=== PATIENT | male | born 1940 | race Caucasian/White ===

== ENCOUNTER 2017-01-14 14:01 | Inpatient (IN) | payer MEDICARE, OTHER ==
[~2017-01-14] VITALS: Ht 170.2 cm; Wt 56.7 kg
[2017-01-14 14:06] VITALS: BP 167/85; PULSE 68; RESP 16; O2SAT 97
[2017-01-14] MEDS ORDERED: ATOR20TA PO (14:11)
--- NOTE | 2017-01-14 14:21 | ED.REPORT ---
HPI-Chest Pain 40 and Over Date of Service Jan 14, 2017 ED Provider: Morgan Paul MD 76 year old male with a history of high cholesterol presents to the ER complaining of intermittent shortness of breath and chest pain for the past month. Over the past few weeks he has noticed an exertional component to symptoms, exacerbation with laying flat, and he states that the pain is periodically present upon awakening. Today symptoms worsened with constant left side chest pain that radiates into his left arm, which prompted his ER visit. Nursing Notes Stated Complaint: CHEST PAIN,SHORT OF BREATH-BROUGHT OVER FROM OR Chief Complaint: Chest Pain Nursing Notes Reviewed: Yes Allergies: Coded Allergies: Contrast Media (Verified Allergy, Intermediate, Hives, 01/14/17) Scheduled Atorvastatin (Lipitor) 20 Mg Tablet 20 MG PO DAILY General Time Seen by MD: 14:13 Chief Complaint Chest pain Hx Obtained From: Patient Arrived By: Walk-in Sudden in Onset?: No Onset Occurred: More than a week ago... (1 month) Symptom Duration: Intermittent Location: : Chest left Quality: Painful Radiation: : Arm left Severity: Current: Mild Severity: Maximum: Moderate Recent Healthcare: Recent doctor visit Similar Sx Previous: Yes Past Medical History Past Medical History Reports: Hyperlipidemia (High Cholesterol) Smoking History Unknown if Ever Smoker Ambulatory Status Independent Review of Systems Constitutional: Denies: Chills, Fever Respiratory: Reports: Shortness of breath Cardiovascular: Reports: Chest pain, Dyspnea on exertion, Denies: Palpitations GI: Denies: Nausea, Vomiting Musculoskeletal: Reports: Extremity pain (Left Arm), Denies: Back pain, Neck pain Complete sys rev & neg: except as marked. Physical Exam Initial Vital Signs Vital Signs (First) Date Time Temp Pulse Resp B/P Pulse Ox O2 Delivery O2 Flow Rate FiO2 01/14/17 14:06 35.9 68 16 167/85 97 Room Air Initial VS: Reviewed Head / Eyes: Atraumatic, Normocephalic, PERRL Neck: Supple, Non-tender, Full range of motion Extremities: Vascular intact, Neuro intact, No swelling, No tenderness Skin: Warm, Dry, No cyanosis Neurologic: Alert, Oriented, Nonfocal General/Constitutional: Awake, Alert, Well developed, Well nourished Respiratory / Chest: Breath sounds NL, Breath sounds = bilat, No respiratory distress, No rales, No rhonchi, No wheezing, No stridor, No chest tenderness Cardiovascular: Heart rate NL, Regular rhythm, Heart sounds NL, No murmurs, Peripheral circulation NL, Pulses = bilaterally, No gross BP differential Abdomen: Soft, Non-tender, No guarding, No rebound, No distention Interpretation & Diagnostics Lab Results Interpretation Result Diagram: 01/14/17 1420 01/14/17 1420 Test 01/14/17 14:20 White Blood Count 5.8th/mm3 (3.8-10.1) Red Blood Count 5.10mil/mm3 (4.40-5.80) Hemoglobin 15.6g/dL (13.8-17.2) Hematocrit 46.3% (41.0-50.0) Mean Corpuscular Volume 90.8fL (81-100) Mean Corpuscular Hemoglobin 30.6pg (27.0-35.0) Mean Corpuscular Hemoglobin Concent 33.7% (32.0-37.0) Red Cell Distribution Width 12.6% (12.3-15.4) Platelet Count 246bil/L (150-400) Neutrophils (%) (Auto) 53.7% (40-74) Lymphocytes (%) (Auto) 28.0% (14-46) Monocytes (%) (Auto) 14.1% (4-12) Eosinophils (%) (Auto) 3.3% (0-5) Basophils (%) (Auto) 0.9% (0-3) D-Dimer 0.6mg/L (<0.50) Sodium Level 140mEq/L (134-144) Potassium Level 4.2mEq/L (3.5-5.2) Chloride Level 102mEq/L (97-108) Carbon Dioxide Level 23mmol/L (18-29) Blood Urea Nitrogen 15mg/dL (8-27) Creatinine 0.91mg/dL (0.76-1.27) Estimat Glomerular Filtration Rate 87mL/min (>59) Glucose Level 102mg/dL (60-99) Calcium Level 9.9mg/dL (8.5-10.1) Magnesium Level 2.2mg/dL (1.6-2.6) Total Bilirubin 0.5mg/dL (0.0-1.2) Aspartate Amino Transf (AST/SGOT) 28U/L (0-50) Alanine Aminotransferase (ALT/SGPT) 28U/L (0-44) Alkaline Phosphatase 69U/L (25-160) Troponin T < 0.010ug/L (0.0-0.011) Pro-B-Type Natriuretic Peptide 103.0pg/mL (0-486) Total Protein 7.3g/dL (6.4-8.4) Albumin 4.7g/dL (3.4-5.0) ECG Interpretation ECG Interpretation: Sinus rhythm, rate [address] T changes Time: 15:47 Interpreted by: ED physician X-Ray Chest Interpretation Chest Xray Interpretation: IMPRESSION: No acute cardiopulmonary disease process. Dictated by: Zina Gr MD, PhD on 01/14/2017 at 15:14 Approved by: Zina Gr MD, PhD on 01/14/2017 at 15:14 View: Portable, 1 view Interpretation / Wet Read by: Interpret - Radiologist Re-Eval/Medical Decision Med Decision/Clinical Course 76 -year-old male history of hypercholesterolemia presenting with exertional dyspnea and chest pain for 1-2 months. Also reports chest pain at rest. Troponins are negative. No EKG changes. BNP is normal. D-dimer is mildly elevated. Patient has contrast allergy and cannot perform CT angiogram emergently. Discussed with hospitalist and we will admit for chest pain. Possible unstable angina. Differential hospitalist regarding VQ scan versus pretreating for CT angiogram chest to rule out PE. We discussed holding off on anticoagulation given low d-dimer and low risk PE pending studies. Time of Eval: 16:26 Re-Evaluation/Progress Note: Patient's pain is mild, but persistent. Discussed lab and radiology results and need for admission. Patient is amenable to the plan. All other questions addressed. Consultation : Referral / Consult Name: Truong Lim MD Consulted With: Hospitalist Call Returned at: 16:39 Cook Helper Juice: Agrees with eval, Agrees with plan, Accepts admit Counseled Regarding: Diagnosis, Lab results, Need for admission Discharge & Departure Primary Impression: Chest pain Disposition: ADMITTED TO HOSPITAL Discharge Condition All VS Reviewed: Yes Condition: Stable Referrals: [facility] Scribe Attestation Portions of this note were transcribed by Burak Martínez. I, Dr. Paul, personally performed the history, physical exam and medical decision-making; I reviewed and confirmed the accuracy of the information in the transcribed note. Signed by: Mellissa Anand, 01/14/2017 and 16:45 copies to: [facility] Morgan Paul MD Jan 14, 2017 14:21 BURAK MARTÍNEZ Jan 14, 2017 14:24
[2017-01-14 14:32] LABS: BASOPHILS % (AUTO) 0.9 % (0-3); EOSINOPHILS % (AUTO) 3.3 % (0-5); MONOCYTES % (AUTO) 14.1 % (4-12); Mean Corpuscular Hemoglobin 30.6 pg (27.0-35.0); Mean Corpuscular Volume 90.8 fL (81-100); NEUTROPHILS % (AUTO) 53.7 % (40-74); Platelet Count 246 bil/L (150-400)
[2017-01-14 15:07] LABS: Magnesium 2.2 mg/dL (1.6-2.6)
[2017-01-14 15:08] LABS: TROPONIN T < 0.010 ug/L (0.0-0.011)
--- NOTE | 2017-01-14 15:15 | DRSVH ---
PROCEDURE: X-RAY CHEST ONE VIEW, PORTABLE ([id number]) INDICATIONS: chest pain TECHNIQUE: One view of the chest was acquired. COMPARISON: None. FINDINGS: Surgical changes and devices: None. Lungs and pleura: No pleural effusions or pneumothorax. Lungs are clear. Mediastinum: Mediastinal contours appear normal. Heart size is normal. Bones and chest wall: No suspicious bony lesions. Overlying soft tissues appear unremarkable. IMPRESSION: No acute cardiopulmonary disease process. Dictated by: Zina Gr MD, PhD on 01/14/2017 at 15:14 Approved by: Zina Gr MD, PhD on 01/14/2017 at 15:14
[2017-01-14 17:11] VITALS: BP 156/76; PULSE 69; RESP 18; O2SAT 99
[2017-01-14] MEDS ORDERED: Alum-Mag Hydrox-Simeth 30 mL Suspension PO PRN (19:15)
[2017-01-14] MEDS ORDERED: Ondansetron 2 mg/mL 2 mL Inj IVPUSH PRN (19:15)
[2017-01-14] MEDS ORDERED: Lactated Ringer's 1,000 ML IV SCH (19:15)
[2017-01-14] MEDS ORDERED: Polyethylene Glycol (PEG) 17 Gm Powder PO PRN (19:15)
[2017-01-14 19:25] VITALS: BP 171/99; PULSE 85; RESP 20; O2SAT 97
--- NOTE | 2017-01-14 19:38 | PCM.HPMED ---
Subjective Date of Service Jan 14, 2017 Primary Provider: Admitting Physician: [facility] Care Physician: [facility] Attending Physician: Chief Complaint: Chest pain History of Present Illness: 76 years old with past medical history of hyperlipidemia came to ER complaining about intermittent chest pain for a month or so . Pain is exacerbate when he goes to exercises and do treadmill , and relieve by rest. Pain is retrosternal , radiating to left arm, He has been having some shortness of breath recently . He went today to his PCP who sent him to the ER for further evaluation . ER work up is negative except for very mild elevation in D-dimers . Patient being left to observation to r/o acs . Allergies Coded Allergies: Contrast Media (Verified Allergy, Intermediate, Hives, 01/14/17) Home Medications Atorvastatin. PMH Hypercholesterolemia Surgical History None Family History Reviewed and non contributory to the present illness Social History Hx Alcohol Use: No (Not in 25 years) Smoking Status: Unknown if Ever Smoker Living Arrangement: with Family Exam Vital Signs Vital Sign - Last Date Time Temp Pulse Resp B/P Pulse Ox O2 Delivery O2 Flow Rate FiO2 01/14/17 17:11 69 18 156/76 99 Room Air 01/14/17 14:06 35.9 Exam Gen : NAD . Well nourished . Head / Eyes: Atraumatic, Normocephalic, PERRL Neck: Supple, no JVD Chest : Normal respiratory effort Lung : Clear B/l. No G/M/R Heart : S1S2, RRR, No gallop, no murmur Abdomen : Benign Extremity : NO edema, no cyanosis Neuro : Grossly intact Skin : No rash, no ulcer Lab and Diagnostics Result Diagram: 01/14/17 1420 01/14/17 1420 X-Rays, CTs and MRIs Chest X-ray reviewed : No acute cardiopulmonary disease process Assessment & Plan 1. Chest 2 . SOB. (PE?) 3 .hypercholesterolemia Telemetry monitoring. Troponin x 3 . Aspirin 81 mg PO daily Nitroglycerine for chest pain . Consider stress test in AM . V/Q ordered in ER is pending . Possibility of PE is being entertained . Lovenox therapeutic dose initiated in the interim . Patient is breathing in room air with good saturation . D-Dimers very mildly elevated 0.6. Short hospital stay is expected VTE Prophylaxis: Other (ON lovenox at therapeutic dose ) Resuscitation Status: CPR: Attempt Resuscitation Time spent 25 minutes Harish Pereyra MD Jan 14, 2017 19:38
[2017-01-14 20:56] VITALS: PULSE 67
[2017-01-14] MEDS ORDERED: MULT-140 PO (21:03)
[2017-01-14] MEDS ORDERED: GARL500T4 PO (21:03)
[2017-01-14] MEDS ORDERED: ASPI81TA3 PO (21:03)
[2017-01-14] MEDS ORDERED: FISH1CAP15 PO (21:03)
[2017-01-14 21:19] VITALS: BP 170/98; PULSE 77; RESP 18; O2SAT 97
[2017-01-14] MEDS ORDERED: predniSONE 20 mg Tablet PO ONE (21:25)
[2017-01-14 23:17] VITALS: BP 153/81; PULSE 73
[2017-01-15] VITALS (7 sets, daily range): BP systolic 126–143; BP diastolic 69–84; PULSE 51–81; RESP 18; O2SAT 95–97
--- NOTE | 2017-01-15 | NUR ---
Admit note Pt arrived to [facility] at 1999. Pt stating came to ER due to increased chest pressure and shortness of breath. Pt stating having slight chest pressure, denies chest pain, denies shortness of breath while sitting in bed. Placed pt on tele. Allergy sticker to arm band. Pt's BP elevated 170/98, orders for PO metoprolol received. Call light within reach, frequent rounding.
--- NOTE | 2017-01-15 03:28 | NUR ---
PO prednisone Pt has new orders for PO prednisone from ER MD. Paged swing shift MD to clarify orders, no CT was ordered, MD did not page back. Night hospitalist paged to clarify orders, no page back. Pharmacy called to clarify CT contrast allergy orders. Prednisone held at this time.
[2017-01-15] MEDS ORDERED: predniSONE 20 mg Tablet PO SCH (03:30)
[2017-01-15 08:07] LABS: Mean Corpuscular Hemoglobin 30.4 pg (27.0-35.0); Mean Corpuscular Volume 92.8 fL (81-100)
[2017-01-15 10:37] LABS: APPEARANCE,URINE CLEAR (CLEAR,HAZY); COLOR,URINE YELLOW (YELLOW)
[2017-01-15 10:38] LABS: OCCULT BLOOD,URINE NEGATIVE (NEGATIVE); UROBILINOGEN,URINE NORMAL (NORMAL)
--- NOTE | 2017-01-15 11:40 | DRSVH ---
PROCEDURE: 1 DAY TREADMILL STRESS TEST Rest and exercise myocardial perfusion SPECT with gated imaging and ejection fraction RADIOPHARMACEUTICAL: 9.2 mCi Tc-99m tetrafosmin IV at rest and 30.3 mCi Tc-99m tetrafosmin IV at pea k exercise. [id number] was performed. INDICATIONS: 76 year-old man with chest pain. The patient has hyperlipidemia and family history of c oronary artery disease. TECHNIQUE: Radiopharmaceutical was injected at peak stress test, and also at rest. SPECT images wer e obtained. SPECT myocardial perfusion images were displayed in short axis, horizontal long axis, an d vertical long axis views. Gated images were reviewed using AutoQUANT software. COMPARISON: None. CARDIAC STRESS: A standard Jaron treadmill exercise tolerance test was performed by the patient under the supervision of an attending staff. The patient exercised for 5 minutes and 59 seconds; functional aerobic impai rment (RUDDY) is +2 %. Hemodynamic data: There is normal blood pressure and punctate heart rate response to exercise stress . Patient achieved a 67% of maximum predicted heart rate at peak exercise. Symptoms: Patient experienced chest pain 4/10 during exercise. EK-[address] depression in the inferior leads; no ectopy. FINDINGS: Raw data: There is good myocardial labeling by radiotracer. No significant motion artifacts. Left ventricle function: Gated images demonstrate normal left ventricle wall thickening. No segment al wall motion abnormality. No transient ischemic dilation. The left ventricle resting end-diastoli c volume is normal. Left ventricle stress ejection fraction is 59%; normal values are above 45%. Myocardial perfusion: There is moderate sized, moderately severe, reversible perfusion defect in the basal inferior wall consistent with myocardial ischemia. The defect persists on pointing. IMPRESSION: 1. Abnormal myocardial perfusion images. There is a moderate-sized, moderately severe, reversible per fusion defect in the basal inferior wall consistent with myocardial ischemia. 2. Normal left ventricular volume and systolic function. 3. Fair exercise capacity and submaximal exercise with the patient achieving 67% maximum predicted he art rate (target heart rate 85% or greater). The patient experienced chest pain, 4/10 in severity dur ing exercise. There are diagnostic EKG changes for ischemia. The result was discussed with Dr. Sheriff prior to dictation. PQRS ATTESTATIONS: Measure 322 - Is this imaging test primarily performed on a low-risk surgery patient for preoperative evaluation within 30 days preceding their low-risk non-cardiac surgery? Low-risk surgery is defined as cardiac or myocardial infarction less than 1%, including (but not limited to) endoscopic pr ocedures, superficial procedures, cataract surgery, and excisional breast surgery: Answer: No Measure 323 - Is this imaging test performed primarily for the monitoring of an asymptomatic patient who had percutaneous coronary intervention on the visit date or within 2 years of the visit date? An swer: No Measure 324 - Is this imaging test performed primarily for the initial detection and risk assessment on an asymptomatic, low coronary heart disease patient? Low CHD risk definition = clinicians should consider the maximum number of available patient factors used to estimate risk based on Cadott (A TP III criteria), typically age, gender, diabetes, smoking status, and use of blood pressure medicati on, and integrate age appropriate estimates for missing elements, such as LDL or standard blood press ure. Answer: No Dictated by: Svetlana Fay M.D. on 01/15/2017 at 11:12 Approved by: Svetlana Fay M.D. on 01/15/2017 at 11:38
--- NOTE | 2017-01-15 12:32 | NUR ---
Social Work-initial assessment/readiness for discharge: Data:See initial assessment. Pt is a 76 y/o male who was admitted on 01/14/17 for chest pain per H&P. Pt's insurance is [employer] and PCP is [facility]. EMR Reviewed. Pt's readmission score is 0. SW met with pt at bedside to discuss discharge planning, SW role explained. Pt is alert and oriented x3. Pt resides at home alone where he remains independent with ADLS. Pt drives and does not use any DME at home. Pt has no HH or SNF history. Pt has no LTC and has [place] benefits. SW discussed DPOA/ advanced directive, pt states he has completed this paperwork, SW encouraged a copy to be brought into the hospital. Per RN notes, pt has been up independent in his room. Pt states his car is in the parking lot and he will drive himself home. SW provided phone number and plan on white board in room. No anticipated discharge needs. SW will continue to follow if needs arise. Assessment:Pt who is independent at baseline. Plan:Pt to discharge home when medically stable via POV. No anticipated discharge needs. SW will continue to follow if needs arise. GRISELDA Galeas Addendum: 01/15/17 at 1244 by MANJU MCDONOUGH Amended: Links added.
--- NOTE | 2017-01-15 14:05 | CONS ---
[address] [address] CONSULTATION REPORT PATIENT: JJ OVALLE : 1940 MR#: [id number] ADMIT: 01/14/2017 JOB ID: [id number] DATE OF SERVICE: 01/15/2017 CARDIOLOGY CONSULTATION: IDENTIFICATION: Dr. Pereyra has asked that I consult on this 76-year-old male with recent onset exertional chest discomfort and a markedly abnormal stress sestamibi study. HISTORY OF PRESENT ILLNESS: The patient denies any previous cardiac history although has had longstanding hyperlipidemia which he states has been fairly well controlled on atorvastatin. Over the last 1-2 months, he has noted progressive exertional dyspnea while working out on his treadmill associated with a slight chest pressure that he describes as an ache in the left chest, occasionally radiating to the left arm, that would that more recently has come on predictably with exertion and resolving with rest. It has been slowly progressive and he has awakened several times in the morning with a very slight vague sense of discomfort that would spontaneously resolve without any associated dyspnea. He has had to cut back on his exercise regimen because of this and presented to the [facility] yesterday, who directed him to the emergency department. There, he was pain free, with an ECG that was unremarkable but a borderline elevated troponin. He was admitted and underwent exercise treadmill myocardial perfusion imaging today that showed average exercise capacity, although somewhat blunted heart rate response to only 67% of his predicted maximum, but with provocation of chest discomfort and 1-[address] depression. Perfusion imaging shows a moderate sized, moderately severe, predominantly reversible proximal to mid inferior defect that persists on prone imaging, consistent with ischemia. His stress ejection fraction is 59% with stress, with hypokinesis in the inferolateral wall on the stress images. I have personally reviewed these images and tracings. He currently feels comfortable, although at times has had some vague chest discomfort. He otherwise denies any dyspnea. There is no pleuritic or positional component to the discomfort. He denies any associated diaphoresis, nausea, vomiting, palpitations, or lightheadedness. He states his blood pressure has been fairly well controlled at home, generally in the 120-130 range. Cardiac risk factors notable for hyperlipidemia and remote history of tobacco use, smoking one pack per day for 20 years but none since 1980. He denies any history of hypertension or diabetes. Family history notable for father who at age at 64 from an DE at the time of an angiogram. PAST MEDICAL HISTORY: Notable for extensive back surgery in July 2014 with good relief of his pain. 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 For the past 25 years. He has a remote history of peptic ulcer disease in 1966 while in the [place] conflict that was associated with a small bowel obstruction, but has had no complications since then. HOME MEDICATIONS: Atorvastatin 20 mg daily. ALLERGIES: He received intravenous iodine in the which produced hives but no other contrast issues and no other allergies. FAMILY HISTORY: As above and otherwise unremarkable, without any other family history of coronary disease. His mother remains alive at 102. SOCIAL HISTORY: The patient is a retired aircraft fabricator at [employer] who lives in [place] and has been for the last six years. He has no primary care physician. REVIEW OF SYSTEMS: A complete review is performed and is notable for the absence of any recent fevers or chills or weight change. Denies any vision change or ENT problems. Denies any other dyspnea except as above and specifically denies any cough or hemoptysis. He has had no recent problems with peptic ulcer disease or GI blood loss and denies any genitourinary complaints or hematuria. He has some chronic back arthritis but no other musculoskeletal complaints. Denies any stroke or TIA like symptoms. He reports having transient period of low thyroid that required supplement for several months last year, but was taken off of that when it normalized. No history of any bleeding disorder. Denies any unusual anxiety or depression. PHYSICAL EXAMINATION: Pleasant, healthy appearing, elderly male in no distress. HR 51, BP 143/84, O2 saturation 97% on room air. Weight is 86.2 kg. Skin: Warm and dry, with several tattoos. HEENT: EOMI with mild arcus. He has an upper denture plate and with fair dentition below. Lungs: Clear bilaterally to auscultation and percussion, without any rales or wheeze. CV: Nonpalpable PMI with a regular rate and rhythm, with normal S1 and S2, without any appreciable murmurs or gallops. JVP appears to be around 5-6 cm. Carotid and femoral pulses are 2+ bilaterally, with a normal upstroke and no bruit. Dorsalis pedis and posterior tibial pulses were all 2+. Abdomen: Soft, nondistended, nontender. Without any palpable masses or organomegaly. Normal bowel tones are present, without bruits. Extremities: Warm, without any clubbing, cyanosis, or edema. Neuro: Moves all four extremities. Psych: Awake, alert, and oriented. LABORATORY: White count of 6.7, with hematocrit of 44% this morning. His troponins have remained normal. ProBNP was normal at 103. Potassium is 4.0 with a BUN of 22 and a creatinine of 0.9. LFTs are normal. Chest x-ray: Reveals no acute process. ECG: Shows sinus rhythm at 74 beats per minute with early R-wave progression and some nonspecific repolarization abnormalities in the inferior leads but no acute abnormality. IMPRESSION: 1. Exertional chest discomfort, likely reflecting unstable angina. His description of the discomfort is quite consistent with myocardial ischemia and given the fact that it has occurred at rest would suggest a possible unstable situation. This is supported by his stress test which clearly shows provocation of ischemia in the inferior distribution suggesting an RCA lesion. Given this, I have recommended proceeding with cardiac catheterization to better define his coronary anatomy and to provide percutaneous revascularization if appropriate. I discussed with him the procedure and alternatives, including aggressive medical therapy, as well as the risks of the procedure. He agrees to proceed but would like to do this tomorrow as he has not eaten in some time and I think this is reasonable as he will require pretreatment prior to his angiogram because of his iodine allergy. Thus, I will discuss with my interventional colleagues about putting him on the schedule for tomorrow morning. Further recommendations will be dependent upon that result, but in the meantime I would continue with his current medications with the exception of stopping his Lovenox after his evening dose. 2. Hyperlipidemia. I will increase his atorvastatin to 40 mg daily. He will require a lipid recheck in around 2-3 months. 3. History of thyroid disorder. A TSH should be checked. 4. History of iodine allergy. I will pretreat him with H1 and H2 blockers as well as prednisone. PLAN: 1. Continue current medications, but stop Lovenox after this evening's dose. 2. Increase atorvastatin to 40 mg daily. 3. Pretreat for iodine allergy. 4. Proceed with cardiac catheterization by one of my interventional colleagues tomorrow with further recommendations dependent upon those results. 5. Check a lipid panel in around 2-3 months. 6. Check a TSH. I spent from 11:43 to 1:15 reviewing the patient's medical record, interviewing and examining the patient, answering his questions, and documenting same. LITO
--- NOTE | 2017-01-15 16:35 | DRSVH ---
[facility] [address] [place] [address] Echocardiogram Report Name: JJ OVALLE WStudy Date: 01/15/2017 Height: 67 in Hospital Exam Location: [facility] Weight: 19 0 lb Gender: Male BSA: 2.0 m2 : 1940 Age: 76 yrs BP: 126/69 mmHg Reason For Study: Chest pain Ordering Physician: HOSPITALIST [facility] Performed By: Miriam Ramirez Referring Physician: ALLISON QUILES Interpretation Summary The left ventricle is normal in size. The ejection fraction is estimated to be 65-70%. The right ventricle is normal in size and function. There is mild mitral regurgitation. Procedure: A two-dimensional transthoracic echocardiogram with color flow and Doppler was performed. The study quality was technically adequate. There is no prior echocardiogram noted for this patient. The study quality was technically good. The patient was in normal sinus rhythm during the exam. Left Ventricle: The left ventricle is normal in size. There is normal left ventricular wall thickness. There is no thrombus. The ejection fraction is estimated to be 65-70%. There are no focal wall motion abnormalities. Spectral Doppler of the mitral valve is reversed, with an E/A wave ratio < 1.0. Right Ventricle: The right ventricle is normal in size and function. Atria: The left atrial size is normal. Right atrial size is normal. The interatrial septum is intact with no evidence for an atrial septal defect. The thickening of interatrial septum suggests lipomatous hypertrophy. Mitral Valve: The mitral valve leaflets are slightly calcified. There is mild mitral regurgitation. Aortic Valve: The aortic valve is normal in structure and function. No aortic regurgitation is present. Tricuspid Valve: The tricuspid valve is normal in structure and function. Pulmonary artery pressures cannot be estimated because of the lack of a measurable TR jet velocity. There is trace tricuspid regurgitation. Pulmonic Valve: The pulmonic valve is not well seen, but is grossly normal. There is trace pulmonic regurgitation. Great Vessels: The aortic root is normal size. The dimensions of the ascending aorta are normal. The pulmonary artery is normal size. The inferior vena cava was not visualized. Pericardium/ Pleura There is no pericardial effusion. There is no pleural effusion. MMode/2D Measurements & Calculations LVIDd: 5.1 cm LA dimension: 3.9 cm RA long axis LVOT diam: 2.0 cm LVIDs: 2.5 cm AoV Opening FS: 50.4 % LA A2 area: 15.1 cm RA area EPSS: 0.23 cm LA A4 area: 20.1 cm Ao root diam IVSd: 0.93 cm LA length (vol) : 14.0 cm LVPWd: 0.73 cm RA vol asc Aorta Diam LA vol: 42.8 ml : 35.3 ml LA vol index RA Ao Arch Diam (Prox : 17.8 mm/ Trans): 2.6 cm : 21.7 ml/m2 RVDd major : 6.9 cm LV corbin. diameter/BSA LV sys. diameter/BSA RVD1 (basal) RVD2 (mid): 2.7 cm (cm/m^2): 2.6 (cm/m^2): 1.3 Doppler Measurements & Calculations Ao V2 max MV E max jw MV E/A: 0.82 PA V2 max : 173.3 cm/sec : 82.7 cm/sec Med Peak E' Jw : 91.6 cm/sec Ao max PG MV A max jw PA mean PG : 12.0 mmHg : 100.9 cm/sec E/E' med: 11.6 Ao mean PG MV P1/2t: 53.5 msec Lat Peak E' Jw PA Accel Time : 0.10 sec LVOT Max Jw E/E' lat: 8.5 : 102.6 cm/sec E/e' average: 10.0 EDE(I,D): 2.4 cm Pulm A Revs Dur sev ratio MV A dur: 0.09 sec MV dec time MV P1/2t max jw Ao V2 mean LV V1 max PG : 0.18 sec : 113.2 cm/sec Ao V2 VTI: 29.4 cm LV V1 VTI MVA(P1/2t): 4.1 cm2 : 22.2 cm EDE(V,D): 1.9 cm2 PA V2 mean EDE indexed to BSA Pulm A Revs Dur - MV A : 66.4 cm/sec (cm^2/m^2): 1.2 Dur: 0.02 msec Reading Physician:HAKEEM
[2017-01-15] MEDS: Sodium Chloride LOK Flush 10 mL Syringe IVFLUSH SCH (18:19)
--- NOTE | 2017-01-15 18:21 | PCM.PNMED ---
Subjective Date of Service Jan 15, 2017 Subjective 76 years old with past medical history of hyperlipidemia came to ER complaining about intermittent chest pain for a month or so . Today, Mr. Phillip reports that he had chest pain during the exercise stress test this morning. He states that for the past month he has noticed retrosternal chest pain with exertion that has progressively worsened and increased in frequency and severity. His exercise tolerance as also decreased. He has noticed dyspnea on exertion as well. He does not have fever, chills, cough, or abdominal pain. Exam Vital Signs Vital Sign - Last Date Time Temp Pulse Resp B/P Pulse Ox O2 Delivery O2 Flow Rate FiO2 01/15/17 11:00 36.4 51 18 143/84 97 Room Air Intake and Output 01/14/17 01/14/17 01/15/17 Cumulative From/Thru 15:00 23:00 07:00 01/14/17 14:06 - 01/15/17 05:09 Intake Total 1104 ml 1104 ml Output Total 450 ml 450 ml Balance 654 ml 654 ml Intake Oral 700 ml 700 ml IV Total 404 ml 404 ml Output Urine Total 450 ml 450 ml Exam General: No acute distress, well-developed, well-nourished, appropriately interactive HEENT: Normocephalic, atraumatic. External ears without defect. Pupils equal, round, and reactive to light and accommodation. Anicteric sclerae, moist conjunctivae, and no lid lag. Neck: Supple with full range of motion. Cardiovascular: Regular rate and rhythm with no murmurs, rubs, or gallops appreciated Pulmonary: Clear to auscultation bilaterally with no crackles, wheezes, or rhonchi. Normal respiratory effort with no use of accessory muscles. Abdomen: Bowel tones present. Soft, nontender, nondistended. Extremities: No clubbing, cyanosis, edema, or lymphadenopathy appreciated. Skin: Normal temperature, turgor, and texture; no rash, ulcers, or subcutaneous nodules appreciated. Neurological: Cranial nerves grossly intact. Normal muscle strength, tone, and bulk. Psychiatric: Normal mood and affect. Alert and oriented to person, place, and time. IVs and Medications Medications Reviewed: Medications were reviewed in detail Lab and Diagnostics Result Diagram: 01/15/17 0500 01/15/17 0500 X-Rays, CTs and MRIs Chest X-ray reviewed : No acute cardiopulmonary disease process PROCEDURE: 1 DAY TREADMILL STRESS TEST Rest and exercise myocardial perfusion SPECT with gated imaging and ejection fraction IMPRESSION: 1. Abnormal myocardial perfusion images. There is a moderate-sized, moderately severe, reversible perfusion defect in the basal inferior wall consistent with myocardial ischemia. 2. Normal left ventricular volume and systolic function. 3. Fair exercise capacity and submaximal exercise with the patient achieving 67 % maximum predicted heart rate (target heart rate 85% or greater). The patient experienced chest pain, 4/10 in severity during exercise. There are diagnostic EKG changes for ischemia. The result was discussed with Dr. Sheriff prior to dictation. Approved by: Svetlana Fay M.D. on 01/15/2017 at 11:38 Cardiac Echo Impressions Echocardiogram Report Interpretation Summary The left ventricle is normal in size. The ejection fraction is estimated to be 65-70%. The right ventricle is normal in size and function. There is mild mitral regurgitation. Reading Physician:PM Assessment & Plan 76 years old with past medical history of hyperlipidemia came to ER complaining about intermittent chest pain for a month or so . 1. Chest pain, subacute, present on admission. Active. -Most likely unstable angina secondary to an underlying possible coronary artery disease as patient had chest pain at rest but it originally was only with exertion. His risk factors include: hyperlipidemia, family history of CAD, and age. -Troponin negative times 3, EKG did not show any significant ST segment changes -Exercise stress test with imaging showed an inferior reversible defect -Cardiology consulted and following. Their time and recommendations are appreciated. -Cardiac catheterization tomorrow morning -NPO after midnight and D5 with 1/2 NS at 75 ml/h after midnight -Metoprolol twice per day and aspirin daily -Nitroglycerin as needed for chest pain -EKG as needed for chest pain -Monitor on telemetry 2 . Dyspnea on exertion, subacute, present on admission. Active. -Likely secondary to above 3 .Hypercholesterolemia , chronic, present on admission. -Atorvastatin daily 4. Contrast media allergy -Pre-medicating patient for cardiac catheterization and coronary angiogram per protocol VTE Prophylaxis: Sub-Q Enoxaparin, Other (ON lovenox at therapeutic dose ) Resuscitation Status: CPR: Attempt Resuscitation Attending Statement The patient was seen and examined together with Resident / House-staff on and I agree with the history, exam and plan as outlined in the note above. Aniya Sheriff DO Jan 15, 2017 13:37 Apollo Granados Jan 16, 2017 17:08
[2017-01-15] MEDS ORDERED: diphenhydrAMINE 25 mg Capsule PO ONE (20:30)
[2017-01-15] MEDS: predniSONE 20 mg Tablet PO SCH (22:17)
[2017-01-16] VITALS (18 sets, daily range): BP systolic 102–145; BP diastolic 52–85; PULSE 55–81; RESP 12–22; O2SAT 90–96
[2017-01-16] MEDS: Sodium Chloride LOK Flush 10 mL Syringe IVFLUSH SCH ×3 (00:39→16:30)
[2017-01-16] MEDS: Dextrose 5% 0.45% NaCl 1,000 ML IV SCH ×2 (00:39→13:25)
[2017-01-16] MEDS: predniSONE 20 mg Tablet PO SCH ×2 (04:24→10:32)
[2017-01-16] MEDS ORDERED: 0.9% Sodium Chloride 1,000 ML IV ONE (06:00)
[2017-01-16] MEDS ORDERED: diphenhydrAMINE 25 mg Capsule PO ONE (06:00)
[2017-01-16 06:04] LABS: BASOPHILS % (AUTO) 0.2 % (0-3); EOSINOPHILS % (AUTO) 0.2 % (0-5); Mean Corpuscular Hemoglobin 30.6 pg (27.0-35.0); Mean Corpuscular Volume 91.6 fL (81-100); NEUTROPHILS % (AUTO) 91.5 % (40-74); Platelet Count 206 bil/L (150-400)
--- NOTE | 2017-01-16 06:31 | NUR ---
Conical Mixer prep/ Prednisone Patient NPO after midnight for cardiac stent placement. PO prednisone given at 10pm and 4am per protocol. IVF started per orders. patient reports unable to sleep. Patient slept most of the night. denies pain. vital signs stable.
[2017-01-16] MEDS ORDERED: predniSONE 10 mg Tablet PO SCH (08:30)
[2017-01-16] MEDS ORDERED: diphenhydrAMINE 50 mg Capsule PO ONE (10:00)
--- NOTE | 2017-01-16 11:00 | NUR ---
Off the Unit Pt taken off [facility] to lab pack chemist. A/Ox3, IV x 2 SL. RA, Pedal pulses marked. No complains of increased chest pain. or SOB. Premedicated for contrast allergy. voided prior to leaving. Report called to Merari MAURICE. Addendum: 01/16/17 at 1539 by VERA HUGGINS RN Pt returned to [facility] at approx. 1510, wrist dressing C/D/I. No signs of bleeding or hematoma. No complains of chest pain or SOB. Pt sts " Actually I'm feeling pretty good". NS infusing at 100mlsr/hr. Call light with in reach, will continue to monitor.
[2017-01-16] MEDS ORDERED: Heparin 1,000 Units/500 mL NS Premix IV ONE (11:04)
[2017-01-16] MEDS ORDERED: Nitroglycerin 50,000 mcg/250 mL D5W Premix IV ONE (11:04)
[2017-01-16] MEDS ORDERED: Heparin 10,000 Unit/1,000 mL NS Premix IV ONE (11:04)
[2017-01-16] MEDS ORDERED: Heparin 1,000 Unit/mL 10 mL Inj ONE (11:04)
[2017-01-16] MEDS ORDERED: Verapamil 2.5 mg/mL 2 mL Inj ONE (11:04)
[2017-01-16] MEDS ORDERED: fentaNYL-PF 50 mCg/mL 2 mL Inj ONE (11:14)
[2017-01-16] MEDS ORDERED: 0.9% Sodium Chloride 1,000 ML ONE (11:15)
[2017-01-16] MEDS ORDERED: 0.9% Sodium Chloride 0 ML ONE (12:01)
[2017-01-16] MEDS ORDERED: Adenosine 3 mg/mL 2 mL Inj ONE (12:01)
--- NOTE | 2017-01-16 13:08 | CS94 ---
[address] [address] DIAGNOSTIC CARDIAC CATHETERIZATION PATIENT: JJ OVALLE : 1940 MR#: [id number] ADMIT: 01/14/2017 JOB ID: [id number] SERVICE DATE: 01/16/2017 PROCEDURE: 1. Selective right and left coronary angiography. 2. Left heart catheterization. INDICATION: New-onset angina. PROCEDURAL DETAILS: These are well enumerated in the procedure log. Briefly, it was done via right radial approach using a 6-Nepali system. ANGIOGRAPHIC FINDINGS: 1. Mild calcification of the coronaries is noted on fluoroscopy. 2. Left main tapers distally, and there is a 50% to 60% lesion that involves the trifurcation with a small nondominant circumflex, a moderate caliber ramus intermedius and a transapical LAD. 3. LAD is a moderate-sized vessel. In its mid to proximal segment it has tubular stenosis of about 30% to 40%. The second diagonal has an ostial 50% to 60% lesion. 4. The circumflex is nondominant. It has ostial 40% disease. 5. The ramus intermedius is a moderate caliber vessel. It is involved in the trifurcation of disease of the left main. In its mid to proximal segment it has a 50% lesion. 6. The right coronary artery is dominant. It is seen via [id number] collaterals. It has a 90% lesion in its mid to proximal segment. This is likely the patient's culprit lesion. 7. Left heart catheterization revealed an LVEDP of 8. There was no gradient upon pullback. Contractility is preserved, and ejection fraction is 70%. RECOMMENDATIONS: The patient is advised bypass surgery.
--- NOTE | 2017-01-16 15:29 | NUR ---
JOSAFAT Patient to [facility] 5 at 1230 from cath lab manager. No family at bedside. Right wrist TR band in place. No bleeding or hematoma. Radial pulse present. Patient denies pain. Taking Sip s PO but HNV. TR removed at 1500. Transferred back to room 3007 by bed at 1505. Report to receiving RN.
[2017-01-16] MEDS ORDERED: 0.9% Sodium Chloride 1,000 ML IV PRN (15:49)
[2017-01-16] MEDS ORDERED: 0.9% Sodium Chloride 250 ML IV PRN (15:49)
[2017-01-16] MEDS ORDERED: Ondansetron 2 mg/mL 2 mL Inj IVPUSH PRN (15:50)
[2017-01-16] MEDS ORDERED: LEVO25TA5 PO (17:01)
[2017-01-16] MEDS ORDERED: METO25TA6 PO (17:01)
[2017-01-16] MEDS ORDERED: ATOR10TA66 PO (17:01)
[2017-01-16] MEDS ORDERED: NITR0.4T SL (17:01)
--- NOTE | 2017-01-16 17:07 | PCM.DIMED ---
Discharge Instructions Date of Service Jan 16, 2017 Dates of Hospitalization Jan 14, 2017 at 20:37 Diet Heart Healthy Activity Limited until seen by PCP Call your provider Fever or Chills, Shortness of breath, Chest pain Patient Instructions Start taking levothyroxine 25 mcg once daily. You will need to have your thyroid levels checked again in 4-6 weeks to see if the dose needs adjusted. Go to Dr. Nicolas's office tomorrow for your scheduled appointment and be there at 2:30 PM as requested by his office. If you have chest pain prior to going to Dr. Nicolas's office, seek medical attention immediately. Continue to take an aspirin 81 mg once daily, metoprolol 25 mg once daily, and atorvastatin 40 mg once daily. You can take nitroglycerin as needed for chest pain. Dissolve one tablet underneath your tongue every 5 minutes and you can repeat this up to 3 times. Follow up with your primary care office in 1 week. Follow-up Provider: [facility] Follow-up with PCP in: 1 week Aniya Sheriff DO Jan 16, 2017 17:07
--- NOTE | 2017-01-16 17:54 | NUR ---
Discharge Pt discharged at this time, all belongings gathered and returned to pt. VSS. No complains of chest pain at this time. Hard copy of new scripts given to pt to fill. IV x 2 D/Cd intact, tele monitor removed. Discharge packet printed and reviewed with pt. Pt declined offer of wheelchair, escorted from [facility] by CHILLER TECHNICIAN, steady gait, to front entrance. Pt to drive self home in private vehicle.
--- NOTE | 2017-01-16 19:20 | PCM.DC.MED ---
Discharge Summary Date of Service Jan 16, 2017 Dates of Hospitalization Date of Hospital Admission Jan 14, 2017 at 20:37 Date of Discharge: Jan 16, 2017 Providers: Admitting Physician: Harish Pereyra MD [facility]ending Physician: Harish Pereyra MD Diagnosis at Time of Discharge Diagnosis at Time of Discharge 1. Chest pain caused by unstable angina from coronary artery disease, subacute, present on admission. Active. 2 . Dyspnea on exertion caused by coronary artery disease, subacute, present on admission. Active. 3 .Hypercholesterolemia, chronic, present on admission. 4. Contrast media allergy 5. Hypothyroidism Procedures XRay, CTs & MRIs Chest X-ray reviewed : No acute cardiopulmonary disease process PROCEDURE: 1 DAY TREADMILL STRESS TEST Rest and exercise myocardial perfusion SPECT with gated imaging and ejection fraction IMPRESSION: 1. Abnormal myocardial perfusion images. There is a moderate-sized, moderately severe, reversible perfusion defect in the basal inferior wall consistent with myocardial ischemia. 2. Normal left ventricular volume and systolic function. 3. Fair exercise capacity and submaximal exercise with the patient achieving 67 % maximum predicted heart rate (target heart rate 85% or greater). The patient experienced chest pain, 4/10 in severity during exercise. There are diagnostic EKG changes for ischemia. The result was discussed with Dr. Sheriff prior to dictation. Approved by: Svetlana Fay M.D. on 01/15/2017 at 11:38 Cardiac Echo Impression Echocardiogram Report Interpretation Summary The left ventricle is normal in size. The ejection fraction is estimated to be 65-70%. The right ventricle is normal in size and function. There is mild mitral regurgitation. Reading Physician:PM Brief History From the history and physical performed by Dr. Harish Pereyra on 01/14/2017: 76 years old with past medical history of hyperlipidemia came to ER complaining about intermittent chest pain for a month or so . Pain is exacerbate when he goes to exercises and do treadmill , and relieve by rest. Pain is retrosternal , radiating to left arm, He has been having some shortness of breath recently . He went today to his PCP who sent him to the ER for further evaluation . ER work up is negative except for very mild elevation in D-dimers . Patient being left to observation to r/o acs . Hospital Course 76 years old with past medical history of hyperlipidemia came to ER complaining about intermittent chest pain for a month or so . 1. Chest paincaused by unstable angina from coronary artery disease, subacute, present on admission. Active. -His risk factors include: hyperlipidemia, family history of CAD, and age. -Troponin negative times 3, EKG did not show any significant ST segment changes -Exercise stress test with imaging showed an inferior reversible defect -Cardiology consulted and following. Their time and recommendations were appreciated. -Metoprolol twice per day and aspirin daily -Nitroglycerin as needed for chest pain -Cardiac catheterization showed multi-vessel coronary artery disease and bypass surgery was recommended. Discussed the patient with Dr. Paez on 01/16/2017 at 4:12 PM and he stated that the patient could be discharged to home and follow up with Dr. Nicolas tomorrow at 3:00 PM. He advised giving the patient nitroglycerin for chest pain and telling the patient to come back if he has chest pain before seeing Dr. Nicolas tomorrow. I called the community dietitian, Angelica, who reported that the patient's documents had been sent to Dr. Nicolas' s office at [place] and that he has an appointment there at 3:[address] Nicolas had called the hospital to talk to the patient's nurse. His nurse, Dolly, stated that Dr. Nicolas asked to talk to the patient and told the patient to report to his office at 2:30 PM tomorrow. 2 . Dyspnea on exertion, subacute, present on admission. Active. -Likely secondary to above 3 .Hypercholesterolemia , chronic, present on admission. -Continued atorvastatin daily 4. Contrast media allergy -Pre-medicating patient for cardiac catheterization and coronary angiogram per protocol 5. Hypothyroidism, recurrent. Active. -TSH 10.1, free T4 0.79 -Started on 25 mcg of levothyroxine daily -Patient will need his TSH and free T4 rechecked in 4-6 weeks and changes made to his dose at that time if necessary. Exam Vital Signs (Last) Date Time Temp Pulse Resp B/P Pulse Ox O2 Delivery O2 Flow Rate FiO2 01/16/17 16:51 36.9 76 18 136/69 94 Room Air Exam General: No acute distress, well-developed, well-nourished, appropriately interactive HEENT: Normocephalic, atraumatic. External ears without defect. Pupils equal, round, and reactive to light and accommodation. Anicteric sclerae, moist conjunctivae, and no lid lag. Neck: Supple with full range of motion. Cardiovascular: Regular rate and rhythm with no murmurs, rubs, or gallops appreciated Pulmonary: Clear to auscultation bilaterally with no crackles, wheezes, or rhonchi. Normal respiratory effort with no use of accessory muscles. Abdomen: Bowel tones present. Soft, nontender, nondistended. Extremities: No clubbing, cyanosis, edema, or lymphadenopathy appreciated. Skin: Normal temperature, turgor, and texture; no rash, ulcers, or subcutaneous nodules appreciated. Neurological: Cranial nerves grossly intact. Normal muscle strength, tone, and bulk. Psychiatric: Normal mood and affect. Alert and oriented to person, place, and time. Test 01/14/17 14:20 01/14/17 20:40 01/15/17 02:57 01/15/17 05:00 D-Dimer 0.6mg/L (<0.50) Magnesium Level 2.2mg/dL (1.6-2.6) Total Bilirubin 0.5mg/dL (0.0-1.2) Aspartate Amino Transf (AST/SGOT) 28U/L (0-50) Alanine Aminotransferase (ALT/SGPT) 28U/L (0-44) Alkaline Phosphatase 69U/L (25-160) Pro-B-Type Natriuretic Peptide 103.0pg/mL (0-486) Total Protein 7.3g/dL (6.4-8.4) Albumin 4.7g/dL (3.4-5.0) Hold [place] Top Tube Received (Received) Troponin T 0.010ug/L (0.0-0.011) Thyroid Stimulating Hormone (TSH) 10.100uIU/mL (0.450-4.500) Test 01/15/17 10:20 01/16/17 05:39 Urine Color Yellow (YELLOW) Urine Appearance Clear (CLEAR,HAZY) Urine pH 6.0 (5.0-8.0) Urine Specific [place] 1.020 (1.003-1.035) Urine Protein Negativemg/dL (NEG,TRACE) Urine Glucose (UA) Negativemg/dL (NEGATIVE) Urine Ketones Negativemg/dL (NEGATIVE) Urine Occult Blood Negative (NEGATIVE) Urine Nitrite Negative (NEGATIVE) Urine Bilirubin Negative (NEGATIVE) Urine Urobilinogen Normalmg/dL (NORMAL) Urine Leukocyte Esterase Negative (NEGATIVE) Urine RBC 0-2/hpf (0-2) Urine WBC 0-5/hpf (0-5) Urine Epithelial Cells Occasional/hpf (NONE-MOD) Urine Crystals None seen (NONE SEEN) Urine Bacteria None/hpf (NONE-FEW) Urine Hyaline Casts None/lpf (NONE) Urine Granular Casts None seen (NONE SEEN) Urine Waxy Casts None seen (NONE SEEN) Urine Red Blood Cell Casts None seen (NONE SEEN) Urine White Blood Cell Casts None seen (NONE SEEN) Urine Mucus None seen (None Seen) Urine Trichomonas None seen (NONE SEEN) Urine Yeast None (NONE SEEN) Urinalysis Comment None Urine Culture Reflexed Not indicated White Blood Count 9.0th/mm3 (3.8-10.1) Red Blood Count 4.77mil/mm3 (4.40-5.80) Hemoglobin 14.6g/dL (13.8-17.2) Hematocrit 43.7% (41.0-50.0) Mean Corpuscular Volume 91.6fL (81-100) Mean Corpuscular Hemoglobin 30.6pg (27.0-35.0) Mean Corpuscular Hemoglobin Concent 33.4% (32.0-37.0) Red Cell Distribution Width 12.6% (12.3-15.4) Platelet Count 206bil/L (150-400) Neutrophils (%) (Auto) 91.5% (40-74) Lymphocytes (%) (Auto) 7.0% (14-46) Monocytes (%) (Auto) 1.0% (4-12) Eosinophils (%) (Auto) 0.2% (0-5) Basophils (%) (Auto) 0.2% (0-3) Sodium Level 140mEq/L (134-144) Potassium Level 4.6mEq/L (3.5-5.2) Chloride Level 105mEq/L (97-108) Carbon Dioxide Level 20mmol/L (18-29) Blood Urea Nitrogen 23mg/dL (8-27) Creatinine 1.09mg/dL (0.76-1.27) Estimat Glomerular Filtration Rate 70mL/min (>59) Glucose Level 198mg/dL (60-99) Calcium Level 9.8mg/dL (8.5-10.1) Free Thyroxine 0.79ng/dL (0.82-1.77) Discharge Medications Discharge Medications Aspirin Chew (Aspirin Chew) 81 Mg Chew 81 MG PO DAILY (Reported) Atorvastatin Calcium (Atorvastatin Calcium) 10 Mg Tablet 40 MG PO HS Prescribed by: ANIYA SHERIFF DO Fish Oil/Dha/Epa (Fish Oil 1,200 mg Fish Oil) 1 Each Capsule 1 EACH PO BID ( Reported) Garlic (Garlic) 500 Mg Tablet 500 MG PO BID (Reported) Levothyroxine (Levothyroxine) 25 Mcg Tablet 25 MCG PO DAILY Prescribed by: ANIYA SHERIFF DO Metoprolol Tartrate (Metoprolol Tartrate) 25 Mg Tablet 25 MG PO BID Prescribed by: ANIYA SHERIFF DO Multivit with Calcium,Iron,Min (Therapeutic M) 1 Each Tablet 1 EACH PO DAILY ( Reported) As needed Nitroglycerin SL (Nitrostat) 0.4 Mg Tab.subl 0.4 MG SL Q5MIN PRN PRN For Chest Pain Prescribed by: ANIYA SHERIFF DO Followup Plan Discharge Diet: Heart Healthy Discharge Activity: Limited until seen by PCP Patient Instructions Start taking levothyroxine 25 mcg once daily. You will need to have your thyroid levels checked again in 4-6 weeks to see if the dose needs adjusted. Go to Dr. Nicolas's office tomorrow for your scheduled appointment and be there at 2:30 PM as requested by his office. If you have chest pain prior to going to Dr. Nicolas's office, seek medical attention immediately. Continue to take an aspirin 81 mg once daily, metoprolol 25 mg once daily, and atorvastatin 40 mg once daily. You can take nitroglycerin as needed for chest pain. Dissolve one tablet underneath your tongue every 5 minutes and you can repeat this up to 3 times. Follow up with your primary care office in 1 week. [facility] Follow-up with PCP in: 1 week Time spent 35 min Attending Statement The patient was seen and examined together with Resident/House-staff on 01/16/17 and I agree with the history, exam and plan as outlined in the note above. copies to: [facility] Aniya Sheriff DO Jan 16, 2017 19:20 Apollo Granados Jan 27, 2017 19:52
== END 2017-01-16 17:52 | disposition home or self-care (01) | DRG 287 ==
LOC: SED 14:01 → MPC 20:37 → OBSVTOIN 20:37 → INTOOBSV 01-15 15:11
PROVIDERS: ADMIT Internal Medicine; ATTEND Internal Medicine
PROC: 4A023N7 Measurement of Cardiac Sampling and Pressure, Left Heart, Percutaneous Approach (ICD-10-PCS; principal; 2017-01-16)
PROC: B2111ZZ Fluoroscopy of Multiple Coronary Arteries using Low Osmolar Contrast (ICD-10-PCS; 2017-01-16)
DX: I25.110 Atherosclerotic heart disease of native coronary artery with unstable angina pectoris (principal); E78.5 Hyperlipidemia, unspecified; E03.9 Hypothyroidism, unspecified; Z87.891 Personal history of nicotine dependence; Z91.041 Radiographic dye allergy status; Z79.82 Long term (current) use of aspirin